=== PATIENT | male | born 1980 | race Caucasian/White ===

== ENCOUNTER → 2019-09-04 | Outpatient (CLI) | payer BC ==
--- NOTE | 2019-09-04 07:38 | US ---
EXAMINATION TYPE: US abdomen complete DATE OF EXAM: 09/04/2019 COMPARISON: CT December 15, 2015 CLINICAL HISTORY: R94.5 ABN LIVER FUNCTIONS. abnormal labs. No pain. NPO. EXAM MEASUREMENTS: Liver Length: 17.5 cm Gallbladder Wall: 0.2 cm CBD: 0.6 cm Spleen: 10.9 cm Right Kidney: 11.4 x 5.2 x 5.4 cm Left Kidney: 12.1 x 6.5 x 5.0 cm Pancreas: Echogenic in appearance. Tail obscured by overlying bowel gas Liver: Increased attenuation, decreased visualization of vessels suggestive of fatty infiltrate. Ec hogenic in appearance. Heterogenous. Gallbladder: wnl Evidence for sonographic Zuñiga's sign: neg CBD: wnl Spleen: wnl Right Kidney: wnl Left Kidney: wnl Upper IVC: wnl Abd Aorta: Proximal obscured by overlying bowel gas The visualized liver is heterogeneously hyperechoic. Evaluation for focal masses is suboptimal due t o the heterogeneity. The intrahepatic portion of the IVC and visualized abdominal aorta are within no rmal limits. There is no evidence of cholelithiasis. Common bile duct is unremarkable. The visuali zed portions of the pancreas are homogenous. The spleen is unremarkable. Kidneys are symmetric and free of hydronephrosis. No renal lesions are seen. IMPRESSION: Diffuse fatty infiltration of liver redemonstrated.
== END | disposition home or self-care (01) ==
LOC: RADUSWWP 06:59
PROVIDERS: ATTEND Family Medicine
DX: K76.0 Fatty (change of) liver, not elsewhere classified (principal)
CPT/HCPCS: 76700

== ENCOUNTER → 2022-05-23 | Outpatient (CLI) | payer BC ==
--- NOTE | 2022-05-23 11:54 | CT ---
EXAMINATION TYPE: CT abdomen pelvis wo con DATE OF EXAM: 05/23/2022 COMPARISON: CT dated 12/15/2015 HISTORY: RLQ Pain CT DLP: 1453.50 mGycm Automated exposure control for dose reduction was used. TECHNIQUE: Helical acquisition of images was performed from the lung bases through the pelvis. FINDINGS: LUNG BASES: No significant abnormality is appreciated. LIVER/GB: Signs of hepatic steatosis. No radiodense gallbladder calculi. PANCREAS: No significant abnormality is seen. SPLEEN: Multiple spleen measuring 14.7 cm. ADRENALS: No significant abnormality is seen. KIDNEYS: No significant abnormality is seen. FREE AIR: No free air is visualized RETROPERITONEAL ADENOPATHY: None visualized REPRODUCTIVE ORGANS: No significant abnormality is seen URINARY BLADDER: No significant abnormality is seen. PELVIC ADENOPATHY: None visualized. OSSEOUS STRUCTURES: Degenerative changes of the lower thoracic spine. BOWEL: Unremarkable stomach, duodenum and small bowel. Acute diverticulitis involving the midportion of the sigmoid colon. No definite abscess formation or signs perforation. No colonic obstruction. No rmal appendix. OTHER: Minimal arterial atherosclerotic calcifications. No sizable ascites. IMPRESSION: Acute diverticulitis of the midportion of the sigmoid colon. No definite abscess formation or signs o f perforation. No colonic obstruction. Other findings as described above.
== END | disposition home or self-care (01) ==
LOC: RADCTMAIN 09:42
PROVIDERS: ATTEND Family Medicine
DX: K57.32 Diverticulitis of large intestine without perforation or abscess without bleeding (principal)
CPT/HCPCS: 74176

== ENCOUNTER 2022-07-28 08:58 | Day surgery (SDC) | payer BC ==
[2022-07-25 16:04] VITALS: BMI 34.7
[~2022-07-28 08:58] MED LIST: LACTATED RINGERS 1,000 ML IV SCH
[2022-07-28 09:31] VITALS: RESP 16; TEMP 97.2
[2022-07-28] MEDS ORDERED: PROPOFOL 10 MG/ML 20 ML VIAL IV ONE (10:33)
--- NOTE | 2022-07-28 10:49 | P.PCN ---
Date of Procedure: 07/28/22 Procedure(s) Performed: BRIEF HISTORY: Patient is a 42-year-old pleasant white male scheduled for an elective colonoscopy as a part of evaluation of prior history of colon polyps. Last colonoscopy was 7 years ago. PROCEDURE PERFORMED: Colonoscopy. PREOPERATIVE DIAGNOSIS: History of colon polyps. IV sedation per Anesthesia. PROCEDURE: After informed consent was obtained, the patient, was brought into the endoscopy unit. IV sedation was administered by Anesthesia under continuous monitoring. Digital rectal examination was normal. Initially the Olympus CF-160 flexible video colonoscope was then inserted in the rectum, gradually advanced into the cecum without any difficulty. Careful examination was performed as the scope was gradually being withdrawn. Ileocecal valve and the appendiceal orifice were visualized and appeared normal. Prep was excellent. Mucosa of the cecum, ascending colon, transverse colon, descending colon, sigmoid colon, and rectum appeared normal. Scattered sigmoid diverticulosis. Retroflexion was performed in the rectum and no lesions were seen. The patient tolerated the procedure well. IM PRESSION: Normal-appearing colon from rectum to cecum with no evidence of colorectal neoplasia . Scattered sigmoid diverticulosis. RECOMMENDATIONS: Findings of this examination were discussed with the patient the family.. He was advised to have a repeat screening colonoscopy in 10 years.
[2022-07-28 11:12] VITALS: BP 130/78; PULSE 79
== END 2022-07-28 11:24 | disposition home or self-care (01) ==
LOC: ORWHC2ENDO 08:58
PROVIDERS: ATTEND Internal Medicine Gastroenterology
DX: Z12.11 Encounter for screening for malignant neoplasm of colon (principal); K57.30 Diverticulosis of large intestine without perforation or abscess without bleeding; Z86.010 Personal history of colon polyps; Z79.899 Other long term (current) drug therapy; Z87.891 Personal history of nicotine dependence
CPT/HCPCS: 45378; J2704